=== PATIENT | female | born 1990 | race Caucasian/White ===

== ENCOUNTER 2017-04-03 00:31 | Inpatient (IN) | payer OTHER ==
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
[2017-04-03 02:18] LABS: Alcohol < 10 mg/dL (<10)
[2017-04-03] MEDS ORDERED: Acetaminophen SUPP* 650 MG SUPP PR PRN (05:36)
[2017-04-03] MEDS ORDERED: Ondansetron INJ* 2 MG/ML VIAL IV PRN (05:36)
--- NOTE | 2017-04-03 07:55 | RAD ---
Indication: Head injury. CT of the brain was performed without IV contrast. Ventricular structures are midline. No midline shift is noted. The extra-axial spaces are unremarkable. There is no evidence of intracranial mass or hemorrhage. No other high or low density lesions are identified. Mastoid air cells and paranasal sinuses are otherwise unremarkable. IMPRESSION: There is no evidence of intracranial mass or hemorrhage.
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
[2017-04-03] MEDS ORDERED: Acetaminophen TAB* 325 MG PO PRN (11:45)
[2017-04-03] MEDS ORDERED: Acetaminophen TAB* 325 MG ONE (11:50)
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
--- NOTE | 2017-04-03 16:16 | RAD ---
HISTORY: Concussion, memory loss COMPARISONS: Head CT dated April 03, 2017 TECHNIQUE: The following sequences were obtained of the head: Sagittal T1-weighted images, axial T2-weighted images, axial FLAIR images, axial susceptibility weighted images, axial T1-weighted images. Additionally, axial diffusion-weighted images were obtained with calculated apparent diffusion coefficients. FINDINGS: HEMORRHAGE/INFARCT: There is no hemorrhage or acute infarct. MASSES/SHIFT: There is no mass or shift. EXTRA-AXIAL SPACES/MENINGES: There are no extra-axial fluid collections. SULCI AND VENTRICLES: The sulci and ventricles are normal in size and position for the patient's stated age. CEREBRUM: There are no focal parenchymal abnormalities. BRAINSTEM: There are no focal parenchymal abnormalities. CEREBELLUM: There are no focal parenchymal abnormalities. The cerebellar tonsils are normal in size and position. SELLA: The sella is normal. PINEAL: The pineal region is clear. CP ANGLE/TEMPORAL BONES: The labyrinthine structures are grossly normal. VESSELS: Normal flow-voids are noted within the visualized vertebral vasculature. DIFFUSION ABNORMALITIES: There are no diffusion abnormalities. PARANASAL SINUSES/MASTOIDS: There are small air-fluid levels within the maxillary sinuses bilaterally ORBITS: The orbits are unremarkable. BONES AND SOFT TISSUE: No bone or soft tissue abnormalities are noted. OTHER: None IMPRESSION: 1. NORMAL BRAIN. 2. MILD SINUS MUCOSAL INFLAMMATORY DISEASE, WITH AIR-FLUID LEVELS IN THE MAXILLARY SINUSES BILATERALLY. IN THE CORRECT CLINICAL SETTING, THIS MAY REPRESENT ACUTE SINUSITIS
[2017-04-03 17:34] LABS: Hematocrit 41 % (35-47); Hemoglobin 13.8 g/dl (12.0-16.0); Mean Corpuscular HGB Conc 34 g/dl (31-36); Mean Corpuscular Hemoglobin 30 pg (27-31); Mean Corpuscular Volume 88 fL (80-97); Mean Platelet Volume 8 um3 (7.4-10.4); Red Cell Distribution Width 15 % (10.5-15); White Blood Count 7.5 10^3/ul (3.5-10.8)
[2017-04-03 17:58] LABS: BUN/Creatinine Ratio 13.8 (8-20); Calcium 8.9 mg/dL (8.6-10.3); EGFR African American 160.4 (>60); EGFR Non-African American 124.7 (>60); Potassium 3.5 mmol/L (3.5-5.0)
[2017-04-03 18:31] LABS: TSH (Thyroid Stimulating Horm) 2.23 mcIU/mL (0.34-5.60)
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
[2017-04-03 23:22] LABS: Urine Bacteria Absent (Absent); Urine Bilirubin Negative (Negative); Urine Glucose Negative (Negative); Urine Nitrite Negative (Negative)
[2017-04-03 23:47] LABS: Benzodiazepine Urine Screen None Detected (None Detect)
[2017-04-04] MEDS: CMCS: Melatonin (NF) 3 MG TAB PO SCH ×2 (02:27→23:25)
[2017-04-04] MEDS ORDERED: Artificial Tears* 15 ML BTL BOTH EYES PRN (09:07)
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
[2017-04-05 15:58] VITALS: BP 90/55
== END 2017-04-05 18:15 | disposition home or self-care (01) | DRG 90 ==
LOC: ED 00:31 → MEDTELE 05:56 → OBSVTOIN 11:45 → MED 23:41
PROVIDERS: ADMIT Internal Medicine; ATTEND Hospitalist
PROC: 4A00X4Z Measurement of Central Nervous Electrical Activity, External Approach (ICD-10-PCS; principal; 2017-04-03)
DX: S06.0X0A Concussion without loss of consciousness, initial encounter (principal); F39 Unspecified mood [affective] disorder; R41.3 Other amnesia; S00.511A Abrasion of lip, initial encounter; R41.0 Disorientation, unspecified; S00.81XA Abrasion of other part of head, initial encounter; X58.XXXA Exposure to other specified factors, initial encounter; Y92.009 Unspecified place in unspecified non-institutional (private) residence as the place of occurrence of the external cause
CPT/HCPCS: 36415; 70450; 70486; 70551; 72125; 80048; 80307; 80320; 81003; 81015; 84443; 84702; 85025; 87086; 95816; A9270-GY; G0378; G0480